=== PATIENT | male | born 1960 | race Caucasian/White ===

== ENCOUNTER 2021-06-17 17:12 | Emergency (ER) | payer SELFPAY ==
[~2021-06-17] VITALS: Ht 182.9 cm; Wt 73.0 kg
--- NOTE | 2021-06-17 17:59 | RAD ---
AP chest. HISTORY: Cough AP view was taken of the chest. Patient has a large right pleural effusion with right basilar atelect asis or infiltrate. There is an old right rib fracture. There is slight density in the left lung from infiltrates or atelectasis. I do not have an old study for comparison. The heart is normal in size. IMPRESSION: 1. Large right pleural effusion. 2. Right basilar atelectasis or infiltrate. 3. Mild atelectasis or infiltrate left lung. Electronically signed by: Nirav Staton MD (06/17/2021 5:56 PM) [facility]
[2021-06-17 18:41] LABS: INFLUENZA A PATIENT NEGATIVE (NEGATIVE); INFLUENZA B PATIENT NEGATIVE (NEGATIVE)
--- NOTE | 2021-06-17 21:08 | PHYS DOC ---
Past History Past Medical History: Bronchitis, COPD, Pneumonia Past Surgical History: No Surgical History Smoking: Cigarettes General Adult EDM: Chief Complaint: COUGH HPI: HPI: ".. I ve been sick for 3 weeks now.. fever,.. coughing up stuff.. just not getting better.. I got really short of breath.. tonight... after a coughing fit... and got this bad pain on my Rt. chest..felt like something popped.. 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 Patient did get COVID vaccination Moderna x2 has not gotten a booster yet. Has not gotten flu vaccination this season. Patient normally only goes to the doctor when he 's " really sick". Patient states he has been extremely short of breath tonight and unable to lay down or get comfortable. Patient obvious respiratory distress requiring 6 L oxygen to maintain saturations above 90%. Patient in somewhat tripod position. Complaining of right chest pain. Is coughing up discolored sputum. Patient denies any recent travel. Patient denies any significant ill contacts. Patient does smoke and has approximately 47-[id number]-[id number] history. 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 No history of fall or chest trauma. Patient denies any history of a coagulopathy. Patient denies any history of cardiac disorders. Does give a history of previous double pneumonia requiring hospital stay years ago. Review of Systems: Review of Systems: Constitutional: Complains of fever or chills Eyes: Denies change in visual acuity HENT: Complains of nasal congestion Respiratory: Complains of productive cough and shortness of breath Cardiovascular: Complains of chest pain and tachycardia GI: Denies abdominal pain, nausea, vomiting, bloody stools or diarrhea : Denies dysuria Musculoskeletal: Denies back pain or joint pain Integument: Denies rash Neurologic: Denies headache, focal weakness or sensory changes Endocrine: Denies polyuria or polydipsia Lymphatic: Denies swollen glands Psychiatric: Denies depression or anxiety Family History: Family History: Noncontributory to presentation Current Medications: Current Meds: See nursing for home meds Allergies: Allergies: Allergies Coded Allergies Type Severity Reaction Last Updated Verified No Known Drug Allergies 06/17/21 No Physical Exam: PE: Constitutional: in acute distress, ill ain appearance. [] HENT: Normocephalic, atraumatic, bilateral external ears normal, oropharynx moist, no oral exudates, nose swollen turbinates clear rhinorrhea. Eyes: PERRLA, EOMI, conjunctiva normal, no discharge. [] Neck: Normal range of motion, no tenderness, supple, no stridor. [] Cardiovascular: Tachycardic heart rate, irregular rrhythm, no murmur [bedside monitor shows sinus tachycardia with multiple PVCs and PACs. Lungs & Thorax: Bilateral breath scattered wheezing and rhonchi throughout , markedly decreased breath sounds on right lung regalado. Dull to percussion on lower right lung regalado. Abdomen: Bowel sounds decreased, soft, no tenderness, no masses, no pulsatile masses. [] Skin: Warm, diaphoretic, no erythema, no rash. Tattoos Back: No tenderness, some right CVA tenderness. [] Extremities: No tenderness, no cyanosis, no clubbing, ROM intact, no edema. No cording appreciated. Neurologic: Alert and oriented X 3, moves all extremities on request, does have distal sensory,, no focal deficits noted. [] Psychologic: Affect anxious, judgement normal, mood normal. [] Current Patient Data: Labs: Laboratory Tests Test 06/17/21 17:39 Influenza Type A (Rapid) Negative (NEGATIVE) Influenza Type B (Rapid) Negative (NEGATIVE) SARS-CoV-2 Antigen (Rapid) Negative (NEGATIVE) Vital Signs: Vital Signs Date Time Temp Pulse Resp B/P (MAP) Pulse Ox O2 Delivery O2 Flow Rate FiO2 06/17/21 17:42 100.2 113 18 149/92 (111) 92 Room Air EKG: EKG: My interpretation of the initial EKG shows a sinus rhythm at 98 bpm. Multiple PVCs, PACs, intraventricular block-abnormal EKG time of EKG is 2219 minutes [] My interpretation of second EKG shows a sinus rhythm at 95 bpm. Possible Dswgb-Yezxzdicd-Nxjww pattern. Time of EKG is 458 Radiology/Procedures: Radiology/Procedures: [address] [address] IMAGING REPORT Signed PATIENT: SOLOMON MOORE ACCOUNT: [id number] : 1960 LOCATION: ER AGE: 61 SEX: M EXAM STATUS: REG ER ORD. PHYSICIAN: SHAMA ANAND MD REASON: eval chest tube PROCEDURE: CT CHEST WO CONTRAST CT THORAX WO History: Chest tube placement Technique: Noncontrast CT of the chest was performed. Coronal and sagittal reconstructions were performed. Exposure: One or more of the following individualized dose reduction techniques were utilized for this examination: 1. Automated exposure control 2. Adjustment of the mA and/or kV according to patient size 3. Use of iterative reconstruction technique. Comparison: June 18, 2021 Findings: Chest: Interval placement right thoracostomy tube. The chest tube traverses the right upper chest and extends inferiorly within the pleural space terminating within the lung base just above the diaphragm. Right chest wall gas. Significant ly decreased right hydropneumothorax. Small residual hydropneumothorax. Interval expansion of the right middle and lower lobes with diffuse patchy opacities. Right lower lobe posterior rounded consolidation measures 6.5 x 4.0 cm. Scattered groundglass opacities, unchanged. Mild pulmonary emphysema. Bronchial wall thickening. Unchanged mediastinal and hilar lymphadenopathy. Mild atheromatous plaque within the aorta. Calcified left hilar lymph nodes and calcified pulmonary nodules, likely prior granulomatous disease. Coronary artery calcifications. Upper abdomen: Bilateral adrenal gland thickening, unchanged. Calcifications within the pancreas related to prior pancreatitis. Contrast noted within the renal collecting system from prior CT. Bones: Chronic bilateral rib fractures. Chronic T3, T4 and T5 compression fractures. Impression: 1. Interval placement right thoracostomy tube terminating within the lung base. Significantly decreased right hydropneumothorax. 2. Interval expansion of right lower lobe and right middle lobe with diffuse patchy opacities, may relate to reexpansion pulmonary edema or pneumonia. 3. Right lower lobe masslike consolidation, may represent rounded atelectasis although mass is not excluded. Recommend short-term follow-up to ensure resolution. 4. Unchanged additional ground glass opacities. 5. Unchanged mediastinal and hilar lymphadenopathy. Recommend attention on follow-up. Electronically signed by: Jakub Barcenas DO (06/18/2021 5:36 AM) [facility] DICTATED AND SIGNED BY: JAKUB BARCENAS DO DATE: 06/18/21526 CC: SHAMA ANAND MD; PCP,NO ~MTH0 0 [[address] [address] IMAGING REPORT Signed PATIENT: SOLOMON MOORE ACCOUNT: [id number] : 1960 LOCATION: ER AGE: 61 SEX: M EXAM STATUS: REG ER ORD. PHYSICIAN: SHAMA ANAND MD REASON: post chest tube PROCEDURE: CHEST AP ONLY XR CHEST 1V History: Reason: post chest tube / Spl. Instructions: / History: Comparison: June 17, [address] Findings: Interval placement right-sided thoracostomy tube. Decreased right hydropneumothorax. Improved aeration of the right lung base. Mild right chest wall gas. Mild multifocal ill-defined opacities. Normal heart size. Right-sided rib fractures. Impression: 1. Interval placement right-sided thoracostomy tube. Decreased right hydropneumothorax. 2. Multifocal ill-defined opacities. Electronically signed by: Jakub Barcenas DO (06/18/2021 4:47 AM) [facility] DI[facility]ATED AND SIGNED BY: JAKUB BARCENAS DO DATE: 06/18/21444 CC: SHAMA ANAND MD; PCP,NO ~MTH0 0 ][address] [address] IMAGING REPORT Signed PATIENT: SOLOMON MOORE ACCOUNT: [id number] : 1960 LOCATION: ER AGE: 61 SEX: M EXAM STATUS: REG ER ORD. PHYSICIAN: SHAMA ANAND MD REASON: C/P, pleural eff, fever, rt side drainage in ER Omni 350 100cc PROCEDURE: CT ANGIOGRAPHY CHEST CTA CHEST History: Pleural effusion. Fever. Pain. Technique: CT of the chest was performed with intravenous contrast. PE protocol. Maximum intensity projection coronal and sagittal reconstructions were performed. Exposure: One or more of the following individualized dose reduction techniques were utilized for this examination: 1. Automated exposure control 2. Adjustment of the mA and/or kV according to patient size 3. Use of iterative reconstruction technique. Comparison: None Findings: Chest: No pulmonary embolism. No aortic aneurysm or dissection. Mild atheromatous plaque within the aorta. Enlarged mediastinal and hilar lymph nodes. Largest right paratracheal lymph node measures 2.3 x 1.4 cm. Largest right hilar lymph node measures 1.6 x 1.3 cm. Large right hydropneumothorax. Near-complete right lower and middle lobe atelectasis. Partial right upper lobe atelectasis. Multifocal groundglass opacities bilaterally. Bronchial wall thickening. Moderate pulmonary emphysema. Upper abdomen: Calcific effusions within the pancreas, related to prior pancreatitis. Bilateral adrenal gland thickening. Bones: Chronic bilateral rib fractures. Chronic T3, T4 and T5 compression fractures. Impression: 1. Large right hydropneumothorax. 2. Near-complete right lower and middle lobe atelectasis with partial right upper lobe atelectasis. 3. Multifocal ground glass opacities bilaterally, may represent infectious or inflammatory process. 4. Mediastinal and hilar lymphadenopathy, potentially reactive. Recommend follow-up to ensure resolution. 5. Moderate pulmonary emphysema. 6. Indeterminate bilateral adrenal gland thickening. Adrenal protocol CT or MRI can assess. FOR INTERNAL CODING PURPOSES Critical result: Findings discussed with SHAMA ANAND MD at 06/18/2021 2:39 AM. RESULT CODE: (C) Electronically signed by: Jakub Barcenas DO (06/18/2021 2:43 AM) [facility] DICTATED AND SIGNED BY: JAKUB BARCENAS DO DATE: 06/18/214 CC: SHAMA ANAND MD; PCP,NO ~MTH0 [address] [address] IMAGING REPORT Signed PATIENT: SOLOMON MOORE ACCOUNT: [id number] : 1960 LOCATION: ER AGE: 61 SEX: M EXAM STATUS: REG ER ORD. PHYSICIAN: MELISSA ANTHONY DO REASON: cough PROCEDURE: CHEST AP ONLY AP chest. HISTORY: Cough AP view was taken of the chest. Patient has a large right pleural effusion with right basilar atelectasis or infiltrate. There is an old right rib fracture. There is slight density in the left lung from infiltrates or atelectasis. I do not have an old study for comparison. The heart is normal in size. IMPRESSION: 1. Large right pleural effusion. 2. Right basilar atelectasis or infiltrate. 3. Mild atelectasis or infiltrate left lung. Electronically signed by: Nirav Staton MD (06/17/2021 5:56 PM) [facility] DICTATED AND SIGNED BY: NIRAV STATON MD DATE: 06/17/21 6619 CC: MELISSA ANTHONY DO; EMERGENCY,DEPARTMENT; PCP,NO ~MTH0 0 Heart Score: C/O Chest Pain: Yes HEART Score for Chest Pain: HEART Score for Chest Pain Response (Comments) Value History Highly Suspicious [address] Depression 2 Age >45 - < 65 1 Risk Factors 1 or 2 Risk Factors 1 Troponin < Normal Limit 0 Total 6 Risk Factors: Risk Factors: DM, Current or recent (<one month) smoker, HTN, HLP, family history of CAD, obesity. Risk Scores: Score 0 - 3: 2.5% MACE over next 6 weeks - Discharge Home Score 4 - 6: 20.3% MACE over next 6 weeks - Admit for Clinical Observation Score 7 - 10: 72.7% MACE over next 6 weeks - Early Invasive Strategies Course & Med Decision Making: Course & Med Decision Making Pertinent Labs and Imaging studies reviewed. (See chart for details) Procedure Note: Thoracentesis/and chest tube placement-discussed patient procedure and risk. The patient advised would most likely not be able to drain the large pleural effusion on his right chest . Advised patient most likely require a chest tube to drain the fluid if it is an exudate. Patient agreeable to procedures thoracentesis and possible chest tube placement. The patient placed in a sitting position and injected lidocaine 2% at mid scapular line T7 right. Aspirated some very thick discolored pleural fluid. Unable to aspirate any significant quantity.. Re- prepped patient chest wall with kit prep-use of sterile draping, mask, gloves. Injected lidocaine 2% posterior axillary line and right at the level of T7 . Patient received additional doses of fentanyl 100 mics x2 incision and blunt dissect and placement of 28 chest tube. Return of over 2000 cc of purulent exudate. Samples collected and sent to lab for evaluation. Tube warner tured in place. Sterile dressing. Chest x-ray and CT then completed for positioning of chest tube. Fluid sent for labs and cytology. Discussed presentation, testing and tx. plan with Dr. Berg. Pt to be transfer to [facility]-for pulmonary consult. Patient had marked improvement in oxygenation and dyspnea complaints after placement of chest tube . Patient covered with antibiotics Rocephin and Zithromax. Critical Care- 90 min. Impression: 1. Pneumonia 2. Hydropneumothorax 3.. Leukocytosis 13.7 4. Hyponatremia 120 5. Elevated D-dimer 1.54 6. COPD/emphysema 7. Sirs/ Sepsis 8. Macrocytic and hyperchromic indices 9. Dysrhythmia- PAC, PVC and WPW pattern Discussed presentation, testing and tx. plan with .. Will accept pt. at [facility]- for Pulmonary. Consult. Pt.transfer to [facility]- Floor bed- as long they handle pneumonia and chest tubes. Pt. to go [facility] - Room 673# Pt.Endorsed to Dr. Anthony at shift change- awaiting ambulance transfer. [] Dragon Disclaimer: Dragon Disclaimer: This electronic medical record was generated, in whole or in part, using a voice recognition dictation system. Departure Departure: Referrals: PCP,NO (PCP) Dragon Disclaimer This chart was dictated in whole or in part using Voice Recognition software in a busy, high-work load, and often noisy Emergency Department environment. It may contain unintended and wholly unrecognized errors or omissions. Dragon Disclaimer This chart was dictated in whole or in part using Voice Recognition software in a busy, high-work load, and often noisy Emergency Department environment. It may contain unintended and wholly unrecognized errors or omissions. SHAMA ANAND MD Jun 17, 2021 21:08
[2021-06-17] MEDS ORDERED: IV RINGERS SOLUTION,LACTATED 1,000 ML IV SCH (21:15)
[2021-06-17] MEDS ORDERED: AZITHROMYCIN 250 MG TABLET. PO ONE (21:15)
[2021-06-17] MEDS ORDERED: IOHEXOL 350 MG/ML 100 ML VIAL. IV ONE (21:30)
[2021-06-17] MEDS ORDERED: LIDOCAINE 2%/EPI 1:100,000 20 ML VIAL. IJ ONE (21:30)
[2021-06-17 22:12] LABS: BASO # 0.1 x10^3/uL (0.0-0.2); BASO % 1 % (0-3); EOS # 0.1 x10^3/uL (0.0-0.7); EOS % 1 % (0-3); HEMATOCRIT 40.1 % (39.0-53.0); HEMOGLOBIN 13.6 g/dL (13.0-17.5); LYMPH # 1.7 x10^3/uL (1.0-4.8); LYMPH % 13 % (24-48); MEAN CORPUSCULAR HEMOGLOBIN 36 pg (25-35); MEAN CORPUSCULAR HGB CONC 34 g/dL (31-37); MEAN CORPUSCULAR VOLUME 105 fL (79-100); MONO # 1.9 x10^3/uL (0.0-1.1); MONO % 14 % (0-9); NEUT % 73 % (31-73); PLATELET COUNT 312 x10^3/uL (140-400); RED BLOOD COUNT 3.84 x10^6/uL (4.30-5.70); WHITE BLOOD COUNT 13.7 x10^3/uL (4.0-11.0)
[2021-06-17 22:18] LABS: CALCIUM 8.9 mg/dL (8.5-10.1); CREATININE 0.7 mg/dL (0.7-1.3); GFR 115.4; POTASSIUM 3.9 mmol/L (3.5-5.1)
[2021-06-17] MEDS ORDERED: IV NORMAL SALINE 50ML 50 ML ONE (22:28)
[2021-06-17] MEDS ORDERED: cefTRIAXone SODIUM 1 GM VIAL ONE (22:28)
[2021-06-17 22:36] LABS: ALBUMIN 3.4 g/dL (3.4-5.0); DIRECT BILIRUBIN 0.2 mg/dL (0.0-0.2); MAGNESIUM 2.1 mg/dL (1.8-2.4); TOTAL BILIRUBIN 0.7 mg/dL (0.2-1.0); TOTAL PROTEIN 7.4 g/dL (6.4-8.2)
--- NOTE | 2021-06-18 02:45 | RAD ---
CTA CHEST History: Pleural effusion. Fever. Pain. Technique: CT of the chest was performed with intravenous contrast. PE protocol. Maximum intensity pr ojection coronal and sagittal reconstructions were performed. Exposure: One or more of the following individualized dose reduction techniques were utilized for thi s examination: 1. Automated exposure control 2. Adjustment of the mA and/or kV according to patient size 3. Use of iterative reconstruction technique. Comparison: None Findings: Chest: No pulmonary embolism. No aortic aneurysm or dissection. Mild atheromatous plaque within the a dc. Enlarged mediastinal and hilar lymph nodes. Largest right paratracheal lymph node measures 2.3 x 1.4 cm. Largest right hilar lymph node measures 1.6 x 1.3 cm. Large right hydropneumothorax. Near-complete right lower and middle lobe atelectasis. Partial right u pper lobe atelectasis. Multifocal groundglass opacities bilaterally. Bronchial wall thickening. Moderate pulmonary emphysema . Upper abdomen: Calcific effusions within the pancreas, related to prior pancreatitis. Bilateral adren al gland thickening. Bones: Chronic bilateral rib fractures. Chronic T3, T4 and T5 compression fractures. Impression: 1. Large right hydropneumothorax. 2. Near-complete right lower and middle lobe atelectasis with partial right upper lobe atelectasis. 3. Multifocal ground glass opacities bilaterally, may represent infectious or inflammatory process. 4. Mediastinal and hilar lymphadenopathy, potentially reactive. Recommend follow-up to ensure resolu tion. 5. Moderate pulmonary emphysema. 6. Indeterminate bilateral adrenal gland thickening. Adrenal protocol CT or MRI can assess. FOR INTERNAL CODING PURPOSES Critical result: Findings discussed with SHAMA ANAND MD at 06/18/2021 2:39 AM. RESULT CODE: (C) Electronically signed by: Jakub Barcenas DO (06/18/2021 2:43 AM) [facility]
[2021-06-18 03:09] LABS: BARBITURATES NEG (NEG); BENZODIAZEPINES NEG (NEG); CANNABINOIDS NEG (NEG); COCAINE NEG (NEG); METHADONE NEG (NEG); OPIATES NEG (NEG); PHENCYCLIDINE NEG (NEG)
[2021-06-18 03:10] LABS: AMPHETAMINE/METHAMPHETAMINE NEG (NEG)
[2021-06-18 03:22] LABS: BILIRUBIN,URINE NEG (NEG); CLARITY,URINE CLEAR; COLOR,URINE YELLOW; GLUCOSE,URINE NEG (NEG)
[2021-06-18 03:23] LABS: BACTERIA,URINE 0 /HPF (0-FEW); NITRITE,URINE NEG (NEG); RBC,URINE 0 /HPF (0-2); SQUAMOUS EPITHELIAL CELL,UR FEW /LPF
[2021-06-18] MEDS ORDERED: MORPHINE SULFATE 10 MG/ML SYRINGE. SQ ONE ×3 (03:30→08:00)
[2021-06-18] MEDS ORDERED: LIDOCAINE 1%/EPI 1:100,000 20 ML VIAL. IJ ONE (03:30)
[2021-06-18] MEDS ORDERED: ONDANSETRON PF 4 MG/2 ML VIAL. ONE (03:46)
[2021-06-18] MEDS ORDERED: ONDANSETRON PF 4 MG/2 ML VIAL. IVP ONE (04:00)
--- NOTE | 2021-06-18 04:49 | RAD ---
XR CHEST 1V History: Reason: post chest tube / Spl. Instructions: / History: Comparison: June 17, [address] Findings: Interval placement right-sided thoracostomy tube. Decreased right hydropneumothorax. Improved aeratio n of the right lung base. Mild right chest wall gas. Mild multifocal ill-defined opacities. Normal he art size. Right-sided rib fractures. Impression: 1. Interval placement right-sided thoracostomy tube. Decreased right hydropneumothorax. 2. Multifocal ill-defined opacities. Electronically signed by: Jakub Barcenas DO (06/18/2021 4:47 AM) [facility]
--- NOTE | 2021-06-18 05:38 | RAD ---
CT THORAX WO History: Chest tube placement Technique: Noncontrast CT of the chest was performed. Coronal and sagittal reconstructions were perfo rmed. Exposure: One or more of the following individualized dose reduction techniques were utilized for thi s examination: 1. Automated exposure control 2. Adjustment of the mA and/or kV according to patient size 3. Use of iterative reconstruction technique. Comparison: June 18, 2021 Findings: Chest: Interval placement right thoracostomy tube. The chest tube traverses the right upper chest and extends inferiorly within the pleural space terminating within the lung base just above the diaphrag m. Right chest wall gas. Significantly decreased right hydropneumothorax. Small residual hydropneumot horax. Interval expansion of the right middle and lower lobes with diffuse patchy opacities. Right lower lob e posterior rounded consolidation measures 6.5 x 4.0 cm. Scattered groundglass opacities, unchanged. Mild pulmonary emphysema. Bronchial wall thickening. Unchanged mediastinal and hilar lymphadenopathy. Mild atheromatous plaque within the aorta. Calcified left hilar lymph nodes and calcified pulmonary nodules, likely prior granulomatous disease. Coronary artery calcifications. Upper abdomen: Bilateral adrenal gland thickening, unchanged. Calcifications within the pancreas rela negra to prior pancreatitis. Contrast noted within the renal collecting system from prior CT. Bones: Chronic bilateral rib fractures. Chronic T3, T4 and T5 compression fractures. Impression: 1. Interval placement right thoracostomy tube terminating within the lung base. Significantly decrea sed right hydropneumothorax. 2. Interval expansion of right lower lobe and right middle lobe with diffuse patchy opacities, may r elate to reexpansion pulmonary edema or pneumonia. 3. Right lower lobe masslike consolidation, may represent rounded atelectasis although mass is not e xcluded. Recommend short-term follow-up to ensure resolution. 4. Unchanged additional ground glass opacities. 5. Unchanged mediastinal and hilar lymphadenopathy. Recommend attention on follow-up. Electronically signed by: Jakub Barcenas DO (06/18/2021 5:36 AM) [facility]
[2021-06-18 05:57] LABS: BGAS PH 7.53 (7.35-7.46)
[2021-06-18] MEDS ORDERED: SODIUM BICARB ADULT 8.4% 50 MEQ/50 ML DISP.SYRIN. IV ONE (06:00)
[2021-06-18 07:38] VITALS: BP 115/59
[2021-06-18] MEDS ORDERED: IV RINGERS SOLUTION,LACTATED 1,000 ML IV ONE (08:00)
[2021-06-18] MEDS ORDERED: fentaNYL 50MCG/HR 1 PATCH PATCH TD SCH (09:00)
--- NOTE | 2021-06-19 04:22 | EKG ---
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
--- NOTE | 2021-06-19 04:30 | EKG ---
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
--- NOTE | 2021-06-19 13:11 | PATHOLOGY ---
Note [facility] Accession Number: [id number] TESTS RESULT FLAG UNITS REF RANGE LAB Clinician Provided Cytology Information No. of containers..01 Other (Miscellaneous) Source: RIGHT PLEURAL DIAGNOSIS: 02 RIGHT PLEURAL NEGATIVE FOR MALIGNANT CELLS. PAUCICELLULAR SPECIMEN WITH FEW INFLAMMATORY CELLS PRESENT. THIS EVALUATION INCLUDES EXAMINATION OF A CELL BLOCK. Signed out by: 02 Al Kellogg MD, Pathologist NPI- [id number] Performed by: Liya Inman, Group Therapy Counselor ([facility]) Gross description: 01 5ML, YUSRA, HAZY /LCS 06/19/2021 0149 Local FLAG LEGEND: L-Low Normal,H-High Normal,LL-Alert Low,HH-Alert High <-Panic Low,>-Panic High,A-Abnormal,AA-Critical Abnormal Performed at: [address] [place] [address] Jared Sutton MD, 02 [facility] [address] [place] [address] Al Kellogg MD, Specimen Comment: A courtesy copy of this report has been sent to [phone], [phone] Specimen Comment: [id number] Specimen Comment: Report sent to DR. BARTON / DR CARDOZA Performed at: [address], [place], [place] [id number] MD Jared Sutton MD Phone: [phone]
== END 2021-06-18 08:19 | disposition short-term general hospital (02) ==
LOC: ER 17:12
DX: J18.9 Pneumonia, unspecified organism (principal); J94.8 Other specified pleural conditions; D72.829 Elevated white blood cell count, unspecified; E87.1 Hypo-osmolality and hyponatremia; R79.1 Abnormal coagulation profile; I49.8 Other specified cardiac arrhythmias; J44.9 Chronic obstructive pulmonary disease, unspecified; F17.210 Nicotine dependence, cigarettes, uncomplicated; Z20.822 Contact with and (suspected) exposure to COVID-19
CPT/HCPCS: 32551; 36415; 71045; 71250; 71275; 80048; 80076; 80307; 81001; 82150; 82550; 82803; 83605; 83615; 83690; 83735; 83880; 83986; 84157; 84443; 84484; 85025; 85379; 85610; 85730; 87040; 87071; 87075; 87102; 87116; 87428; 88112; 88305; 93005; 96365; 96372; 96375; 99291; 99292; J0696; J2270; J2405; J3010; J7120; Q9967